=== PATIENT | female | born 1990 | race Caucasian/White ===

== ENCOUNTER 2019-03-30 22:13 | Inpatient (IN) | payer OTHER ==
[2019-03-30] MEDS ORDERED: KETOROLAC 30 MG/ML 1 ML VIAL IVP STA (22:59)
[2019-03-30] MEDS ORDERED: ONDANSETRON 4 MG/2 ML VIAL IVP STA (22:59)
--- NOTE | 2019-03-30 23:09 | ED ---
Abdominal Pain HPI - General Chief Complaint: Abdominal Pain Stated Complaint: abd pain Time Seen by Provider: 03/30/19 22:28 Source: patient Mode of arrival: ambulatory Limitations: no limitations - History of Present Illness Initial Comments: Patient is 29-year-old woman who had been having some intermittent upper abdominal pains over the course of a number days, presents to be evaluated for right upper quadrant pain that became severe and constant since 2 PM. 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 The pain has continued and then she also developed nausea as well. MD Complaint: abdominal pain Onset/Timin -: hour(s) Location: epigastric Radiation: back Migration to: RUQ Severity: severe Quality: sharp Consistency: constant Improves With: nothing Worsens With: movement Associated Symptoms: nausea, vomiting - Related Data LMP (females 10-50): 3 weeks Patient : No Allergies Allergy/AdvReac Type Severity Reaction Status Date / Time No Known Allergies Allergy Verified 03/30/19 22:24 Review of Systems ROS Statement: Those systems with pertinent positive or pertinent negative responses have been documented in the HPI. ROS Other: All systems not noted in ROS Statement are negative. Constitutional: Denies: fever, chills Respiratory: Denies: cough, dyspnea Cardiovascular: Denies: chest pain, palpitations, edema Gastrointestinal: Reports: abdominal pain, nausea, vomiting. Denies: diarrhea, constipation, hematemesis, melena, hematochezia Genitourinary: Denies: dysuria, hematuria Musculoskeletal: Denies: back pain Skin: Denies: rash Neurological: Denies: headache, weakness, numbness Past Medical History Past Medical History: No Reported History History of Any Multi-Drug Resistant Organisms: None Reported Past Surgical History: Section Past Psychological History: No Psychological Hx Reported Smoking Status: Never smoker Past Alcohol Use History: Occasional Past Drug Use History: None Reported General Exam Limitations: no limitations General appearance: alert, in distress Head exam: Present: atraumatic, normocephalic Eye exam: Present: normal appearance. Absent: scleral icterus, conjunctival injection ENT exam: Present: normal oropharynx Neck exam: Present: normal inspection, full ROM Respiratory exam: Present: normal lung sounds bilaterally. Absent: respiratory distress, wheezes, rales, rhonchi, stridor Cardiovascular Exam: Present: regular rate, normal rhythm, normal heart sounds. Absent: systolic murmur, diastolic murmur, rubs, gallop GI/Abdominal exam: Present: soft, tenderness. Absent: distended, guarding, rebound, rigid, mass, pulsatile mass, hernia Back exam: Present: normal inspection. Absent: CVA tenderness (R), CVA tenderness (L) Neurological exam: Present: alert Skin exam: Present: warm, dry, intact, normal color. Absent: rash Course Vital Signs 03/30/19 22:21 Temperature 98.0 F Pulse Rate 102 H Respiratory 20 Rate Blood Pressure 135/88 O2 Sat by Pulse 99 Oximetry Medical Decision Making - Lab Data Result diagrams: 03/31/19 00:39 03/31/19 00:39 Lab Results 03/31/19 03/31/19 03/31/19 Range/Units 00:39 00:39 01:24 WBC 14.0 H (3.8-10.6) k/uL RBC 4.78 (3.80-5.40) m/uL Hgb 13.6 (11.4-16.0) gm/dL Hct 41.3 (34.0-46.0) % MCV 86.5 (80.0-100.0) fL MCH 28.4 (25.0-35.0) pg MCHC 32.8 (31.0-37.0) g/dL RDW 13.4 (11.5-15.5) % Plt Count 298 (150-450) k/uL Neutrophils % 83 % Lymphocytes % 12 % Monocytes % 3 % Eosinophils % 0 % Basophils % 0 % Neutrophils # 11.7 H (1.3-7.7) k/uL Lymphocytes # 1.7 (1.0-4.8) k/uL Monocytes # 0.5 (0-1.0) k/uL Eosinophils # 0.1 (0-0.7) k/uL Basophils # 0.1 (0-0.2) k/uL Sodium 138 (137-145) mmol/L Potassium 4.3 (3.5-5.1) mmol/L Chloride 106 (98-107) mmol/L Carbon Dioxide 23 (22-30) mmol/L Anion Gap 9 mmol/L BUN 12 (7-17) mg/dL Creatinine 0.65 (0.52-1.04) mg/dL Est GFR (CKD-EPI)AfAm >90 (>60 ml/min/1.73 sqM) Est GFR (CKD-EPI)NonAf >90 (>60 ml/min/1.73 sqM) Glucose 109 H (74-99) mg/dL Calcium 9.9 (8.4-10.2) mg/dL Total Bilirubin 2.1 H (0.2-1.3) mg/dL AST 561 H (14-36) U/L ALT 356 H (4-34) U/L Alkaline Phosphatase 168 H (38-126) U/L Total Protein 7.8 (6.3-8.2) g/dL Albumin 4.5 (3.5-5.0) g/dL Amylase 53 (30-110) U/L Lipase 87 (23-300) U/L Urine Color Yellow Urine Appearance Clear (Clear) Urine pH 7.0 (5.0-8.0) Ur Specific [place] 1.013 (1.001-1.035) Urine Protein Negative (Negative) Urine Glucose (UA) Negative (Negative) Urine Ketones Negative (Negative) Urine Blood Negative (Negative) Urine Nitrite Negative (Negative) Urine Bilirubin Negative (Negative) Urine Urobilinogen 2.0 (<2.0) mg/dL Ur Leukocyte Esterase Negative (Negative) Urine HCG, Qual (Not Detectd) 03/31/19 Range/Units 01:25 WBC (3.8-10.6) k/uL RBC (3.80-5.40) m/uL Hgb (11.4-16.0) gm/dL Hct (34.0-46.0) % MCV (80.0-100.0) fL MCH (25.0-35.0) pg MCHC (31.0-37.0) g/dL RDW (11.5-15.5) % Plt Count (150-450) k/uL Neutrophils % % Lymphocytes % % Monocytes % % Eosinophils % % Basophils % % Neutrophils # (1.3-7.7) k/uL Lymphocytes # (1.0-4.8) k/uL Monocytes # (0-1.0) k/uL Eosinophils # (0-0.7) k/uL Basophils # (0-0.2) k/uL Sodium (137-145) mmol/L Potassium (3.5-5.1) mmol/L Chloride (98-107) mmol/L Carbon Dioxide (22-30) mmol/L Anion Gap mmol/L BUN (7-17) mg/dL Creatinine (0.52-1.04) mg/dL Est GFR (CKD-EPI)AfAm (>60 ml/min/1.73 sqM) Est GFR (CKD-EPI)NonAf (>60 ml/min/1.73 sqM) Glucose (74-99) mg/dL Calcium (8.4-10.2) mg/dL Total Bilirubin (0.2-1.3) mg/dL AST (14-36) U/L ALT (4-34) U/L Alkaline Phosphatase (38-126) U/L Total Protein (6.3-8.2) g/dL Albumin (3.5-5.0) g/dL Amylase (30-110) U/L Lipase (23-300) U/L Urine Color Urine Appearance (Clear) Urine pH (5.0-8.0) Ur Specific [place] (1.001-1.035) Urine Protein (Negative) Urine Glucose (UA) (Negative) Urine Ketones (Negative) Urine Blood (Negative) Urine Nitrite (Negative) Urine Bilirubin (Negative) Urine Urobilinogen (<2.0) mg/dL Ur Leukocyte Esterase (Negative) Urine HCG, Qual Not Detected (Not Detectd) Disposition Clinical Impression: Abdominal pain Disposition: ADMITTED IP TO THIS [facility] Condition: Fair
[2019-03-31 01:00] LABS: Basophils # (A) 0.1 k/uL (0-0.2); Basophils % (A) 0 %; Eosinophils # (A) 0.1 k/uL (0-0.7); Eosinophils % (A) 0 %; HCT 41.3 % (34.0-46.0); HGB 13.6 gm/dL (11.4-16.0); Lymphocytes # (A) 1.7 k/uL (1.0-4.8); Lymphocytes % (A) 12 %; MCH 28.4 pg (25.0-35.0); MCHC 32.8 g/dL (31.0-37.0); MCV 86.5 fL (80.0-100.0); Mean Platelet Volume 7.3; Monocytes # (A) 0.5 k/uL (0-1.0); Monocytes % (A) 3 %; Neutrophils # (A) 11.7 k/uL (1.3-7.7); Neutrophils % (A) 83 %; Platelet Count 298 k/uL (150-450); RBC 4.78 m/uL (3.80-5.40); RDW 13.4 % (11.5-15.5)
[2019-03-31] MEDS: SODIUM CHLORIDE 0.9% 500 ML 500 ML IV STA ×2 (01:00→07:58)
[2019-03-31 01:09] LABS: ALT 356 U/L (4-34); AST 561 U/L (14-36); African American GFR (CKD) >90 (>60 ml/min/1.73 sqM); Albumin 4.5 g/dL (3.5-5.0); Alkaline Phosphatase 168 U/L (38-126); Amylase 53 U/L (30-110); Anion Gap 9 mmol/L; Blood Urea Nitrogen 12 mg/dL (7-17); Calcium 9.9 mg/dL (8.4-10.2); Carbon Dioxide 23 mmol/L (22-30); Chloride 106 mmol/L (98-107); Glucose 109 mg/dL (74-99); Non-African American GFR(CKD) >90 (>60 ml/min/1.73 sqM); Potassium 4.3 mmol/L (3.5-5.1); Sodium 138 mmol/L (137-145); Total Bilirubin 2.1 mg/dL (0.2-1.3); Total Protein 7.8 g/dL (6.3-8.2)
--- NOTE | 2019-03-31 01:10 | US ---
EXAMINATION TYPE: US abdomen limited DATE OF EXAM: 03/31/2019 COMPARISON: NONE CLINICAL HISTORY: Acute abdominal pain, attention RUQ. Acute abdominal pain x 1 week. ATTN RUQ. EXAM MEASUREMENTS: Liver Length: 16.7 cm Gallbladder Wall: 0.23 cm CBD: 0.69 cm Right Kidney: 11.4 x 5.6 x 3.9 cm Limited due to body habitus and overlying bowel gas. Pancreas: Limited. No abnormalities seen at this time. Liver: No abnormalities seen at this time. Gallbladder: There appears to be multiple hyperechoic foci with posterior shadowing within the gallb ladder. Gallbladder measures distended at 12.2 cm. Evidence for sonographic Ch's sign: Yes CBD: Appears to measure slightly dilated 0.7 cm. Right Kidney: No hydronephrosis or masses seen IMPRESSION: Numerous gallstones. Large gallbladder. No dilated ducts. Large common bile duct could relate to some degree of gallbladder dysfunction.
[2019-03-31 02:11] LABS: Appearance,Urine Clear (Clear); Bilirubin,Urine Negative (Negative); Blood,Urine Negative (Negative); Color,Urine Yellow; Glucose,Urine (UA) Negative (Negative); Ketones,Urine Negative (Negative); Leukocyte Esterase,Urine Negative (Negative); Nitrite,Urine Negative (Negative); Protein,Urine Negative (Negative); Specific Gravity,Urine 1.013 (1.001-1.035)
[2019-03-31] MEDS ORDERED: ONDANSETRON 4 MG/2 ML VIAL IVP PRN (03:46)
[2019-03-31] MEDS ORDERED: NALOXONE 0.4 MG/ML 1 ML VIAL IV PRN (03:46)
[2019-03-31] MEDS ORDERED: HYDROmorphone 1 MG/ML 1 ML SYRINGE IVP PRN (03:46)
[2019-03-31] MEDS ORDERED: KETOROLAC 30 MG/ML 1 ML VIAL IVP PRN (03:46)
[2019-03-31] MEDS: SODIUM CHLORIDE 0.9% 1,000 ML IV SCH ×3 (06:53→20:23)
[2019-03-31] MEDS: FAMOTIDINE 20 MG/2 ML VIAL IV SCH ×2 (08:22→20:23)
--- NOTE | 2019-03-31 18:42 | P.GSHP ---
History of Present Illness H&P Date: 03/31/19 Chief Complaint: Right quadrant pain Is a 29-year-old female who was admitted through the emergency room last night. Patient with right quadrant pain. Her son shows evidence of cholelithiasis. Past Medical History Past Medical History: No Reported History History of Any Multi-Drug Resistant Organisms: None Reported Past Surgical History: Section Past Anesthesia/Blood Transfusion Reactions: Postoperative Nausea & Vomiting (PONV) Past Psychological History: No Psychological Hx Reported Smoking Status: Never smoker Past Alcohol Use History: Occasional Past Drug Use History: None Reported - Past Family History Mother Family Medical History: No Reported History Father Family Medical History: No Reported History Medications and Allergies Home Medications Medication Instructions Recorded Confirmed Type No Known Home Medications 03/31/19 03/31/19 History Allergies Allergy/AdvReac Type Severity Reaction Status Date / Time No Known Allergies Allergy Verified 03/31/19 07:57 Surgical - Exam Vital Signs Temp Pulse Resp BP Pulse Ox 98.0 F 102 H 20 135/88 99 03/30/19 22:21 03/30/19 22:21 03/30/19 22:21 03/30/19 22:21 03/30/19 22:21 - General well developed, well nourished, no distress - Eyes PERRL - ENT normal pinna - Neck no masses - Respiratory normal expansion - Cardiovascular Rhythm: regular - Abdomen Mild right quadrant pain Abdomen: soft Results - Labs 03/31/19 00:39 03/31/19 00:39 Abnormal Lab Results - Last 24 Hours (Table) 03/31/19 03/31/19 Range/Units 00:39 00:39 WBC 14.0 H (3.8-10.6) k/uL Neutrophils # 11.7 H (1.3-7.7) k/uL Glucose 109 H (74-99) mg/dL Total Bilirubin 2.1 H (0.2-1.3) mg/dL AST 561 H (14-36) U/L ALT 356 H (4-34) U/L Alkaline Phosphatase 168 H (38-126) U/L Diabetes panel 03/31/19 Range/Units 00:39 Sodium 138 (137-145) mmol/L Potassium 4.3 (3.5-5.1) mmol/L Chloride 106 (98-107) mmol/L Carbon Dioxide 23 (22-30) mmol/L BUN 12 (7-17) mg/dL Creatinine 0.65 (0.52-1.04) mg/dL Glucose 109 H (74-99) mg/dL Calcium 9.9 (8.4-10.2) mg/dL AST 561 H (14-36) U/L ALT 356 H (4-34) U/L Alkaline Phosphatase 168 H (38-126) U/L Total Protein 7.8 (6.3-8.2) g/dL Albumin 4.5 (3.5-5.0) g/dL Calcium panel 03/31/19 Range/Units 00:39 Calcium 9.9 (8.4-10.2) mg/dL Albumin 4.5 (3.5-5.0) g/dL Pituitary panel 03/31/19 Range/Units 00:39 Sodium 138 (137-145) mmol/L Potassium 4.3 (3.5-5.1) mmol/L Chloride 106 (98-107) mmol/L Carbon Dioxide 23 (22-30) mmol/L BUN 12 (7-17) mg/dL Creatinine 0.65 (0.52-1.04) mg/dL Glucose 109 H (74-99) mg/dL Calcium 9.9 (8.4-10.2) mg/dL Adrenal panel 03/31/19 Range/Units 00:39 Sodium 138 (137-145) mmol/L Potassium 4.3 (3.5-5.1) mmol/L Chloride 106 (98-107) mmol/L Carbon Dioxide 23 (22-30) mmol/L BUN 12 (7-17) mg/dL Creatinine 0.65 (0.52-1.04) mg/dL Glucose 109 H (74-99) mg/dL Calcium 9.9 (8.4-10.2) mg/dL Total Bilirubin 2.1 H (0.2-1.3) mg/dL AST 561 H (14-36) U/L ALT 356 H (4-34) U/L Alkaline Phosphatase 168 H (38-126) U/L Total Protein 7.8 (6.3-8.2) g/dL Albumin 4.5 (3.5-5.0) g/dL Assessment and Plan Assessment: Symptomatically size. Patient will undergo laparoscopic cholecystectomy
[2019-04-01] MEDS: SODIUM CHLORIDE 0.9% 1,000 ML IV SCH ×3 (08:18→12:52)
[2019-04-01] MEDS ORDERED: IV FLUID CONTINUATION 1,000 ML IV ONE (08:23)
[2019-04-01] MEDS ORDERED: DEXAMETHASONE SOD PHOSPHATE 10 MG/ML 1 ML VIAL IV ONE (08:28)
[2019-04-01] MEDS ORDERED: SCOPOLAMINE 1.5MG/72HR PATCH TRANSDERM ONE (08:29)
[2019-04-01] MEDS ORDERED: BUPIVACAINE (PF) 0.25% 30 ML VIAL SQ ONE (09:39)
[2019-04-01] MEDS ORDERED: SUCCINYLCHOLINE CHLORIDE 100 MG/5 ML SYR IV ONE (09:41)
[2019-04-01] MEDS ORDERED: PROPOFOL 10 MG/ML 20 ML VIAL IV ONE (09:41)
[2019-04-01] MEDS ORDERED: KETOROLAC 30 MG/ML 1 ML VIAL ONE (09:41)
[2019-04-01] MEDS ORDERED: DILTIAZEM 100 MG VIAL.PORT IV ONE (09:41)
[2019-04-01] MEDS ORDERED: MIDAZOLAM 2 MG/2 ML VIAL ONE (09:41)
[2019-04-01] MEDS ORDERED: ROCURONIUM BROMIDE 10 MG/ML 5 ML VIAL IV ONE (09:41)
[2019-04-01] MEDS ORDERED: ceFAZolin 1,000 MG VIAL IVPB ONE (10:00)
[2019-04-01] MEDS ORDERED: LACTATED RINGERS 1,000 ML IV ONE (10:24)
--- NOTE | 2019-04-01 10:33 | P.OP ---
Date of Procedure: 04/01/19 Preoperative Diagnosis: Cholecystitis Postoperative Diagnosis: Cholecystitis Procedure(s) Performed: Laparoscopic cholecystectomy Anesthesia: YONI Surgeon: Richardson Lange Estimated Blood Loss (ml): 5 Pathology: other (Gallbladder) Condition: stable Disposition: PACU Description of Procedure: The patient was placed on the operating table. The patient received a general endotracheal tube anesthesia. The patients abdomen was prepped and draped in the usual sterile fashion. Through an infraumbilical stab incision, the fascia of the anterior abdominal wall was grasped with a pair of Kochers and then the Veress needle was placed in the peritoneal cavity. Position of the Veress needle was confirmed with positive drop test. The abdomen was then insufflated. After adequate insufflation, the 10 mm trocar was placed in the peritoneal cavity. Following this the laparoscope was placed in the peritoneal cavity. The patient was placed in the head-up, right side up position and then a 5 mm trocar was placed in the right lateral and right subcostal position under direct visualization. A 8 mm trocar was placed in the epigastric position. The gallbladder was grasped in the fundus and infundibulum. Traction on the gallbladder was placed in the lateral and the cephalad positions. The triangle of Calot was visualized.. The cystic duct was bluntly dissected until the union of the cystic duct and common bile duct was seen. A critical view of safety was achieved. The cystic duct was then divided and sealed with the Harmonic scissors. A PDS Endoloop was then placed throughout the cystic duct stump. The cystic artery divided and sealed with the Harmonic scissors. The gallbladder was then removed from the liver bed using Harmonic scissors. The gallbladder was then extracted through the epigastric port site. Operative field was checked for any bleeding spots and Harmonic scissors was used to coagulate the liver bed. The abdomen was irrigated. The trocars were removed. The skin was closed using interrupted 3-0 Vicryl suture. Dermabond dressing were applied. The patient tolerated the procedure well.
[2019-04-01] MEDS ORDERED: ONDANSETRON 4 MG/2 ML VIAL IVP ONE (10:45)
[2019-04-01] MEDS: MORPHINE SULFATE 4 MG/ML SYRINGE IVP ONE ×2 (10:56→11:04)
[2019-04-01] MEDS ORDERED: HYDROcodone/APAP 5-325MG 1 EACH TAB PO PRN (11:37)
[2019-04-01 12:48] VITALS: TEMP 96.8
[2019-04-01] MEDS: FAMOTIDINE 20 MG/2 ML VIAL IV SCH (12:50)
--- NOTE | 2019-04-01 13:06 | P.DS ---
Providers Date of admission: 04/01/19 10:12 Expected date of discharge: 04/01/19 Attending physician: Richardson Lange Primary care physician: Stated None Hospital Course: 29-year-old female who presented to emergency room with a chief complaint of abdominal pain. Patient was found to have cholecystitis. She underwent laparoscopic cholecystectomy with Dr. Lange on 04/01/2019. Patient is doing well postoperatively without any immediate complications. She is stable for discharge home today per Dr. Lange. Please see EMR for further hospital course details. Discharge Diagnosis: 1. Cholecystitis, status post laparoscopic cholecystectomy Nurse practitioner note has been reviewed by physician. Signing provider agrees with the documented findings, assessment, and plan of care. Patient Condition at Discharge: Stable Plan - Discharge Summary Discharge Rx Participant: Yes New Discharge Prescriptions: New Hydrocodone/Acetaminophen [[place] 5-325] 1 tab PO Q6HR PRN #10 tab PRN Reason: Pain Discharge Medication List Hydrocodone/Acetaminophen [[place] 5-325] 1 tab PO Q6HR PRN #10 tab 04/01/19 [Rx] Follow up Appointment(s)/Referral(s): None,Stated [Primary Care Provider] - 1-2 days Richardson Lange MD [STAFF PHYSICIAN] - 1 Week Activity/Diet/Wound Care/Special Instructions: No driving while taking [place] No lifting over 10 pounds You may shower. No soaking or tub baths Very light activity until you are reevaluated at your follow up appointment with your surgeon
[2019-04-01 13:15] VITALS: RESP 16
[2019-04-01 15:40] VITALS: BP 150/97; PULSE 71
--- NOTE | 2019-04-05 04:12 | CDI ---
Documentation Clarification Form Date: 04/05/2019 From: Jorge Stewart Phone: If you have a question about this query, please contact Alejandra Hadley, Medical Billing Representative at [phone] between 8am and 5pm. Admit Date: 04/01/2019 Discharge Date: 04/01/2019 Patient Name: Katie Reyes Visit Number: [id number] ATTENTION: The Clinical Documentation Specialists (CDI) and [facility] Coding Staff appreciate your assistance in clarifying documentation. Please respond to the clarification below the line at the bottom and electronically sign. The CDI & [facility] Coding staff will review the response and follow-up if needed. Please note: Queries are made part of the Legal Health Record. If you have any questions, please contact the author of this message via ITS. Dear Richardson Rincon., Patient admitted with Cholecystitis and underwent cholecystectomy. Patient has BMI of 47.0 History/Risk Factors: Cholecystitis Clinical Indicators: Patients weight is 120.383kg Patients height is: 5ft 3 inch Calculated BMI is 47.0 In order to capture the severity of condition associated with patient BMI of 47.0 a clinical diagnosis needs to be documented by the physician. Please clarify: Overweight Obesity, Class 1 Obesity, Class 2 Extreme (Morbid) (severe) obesity Other, please specify ____ Unable to determine MTDD
== END 2019-04-01 18:43 | disposition home or self-care (01) | DRG 418 ==
LOC: EC 22:13 → 6PED 03-31 03:46 → OBSVTOIN 04-01 10:12
PROVIDERS: ADMIT Surgery; ATTEND Surgery
PROC: 0FT44ZZ Resection of Gallbladder, Percutaneous Endoscopic Approach (ICD-10-PCS; principal; 2019-04-01 09:15)
DX: K81.9 Cholecystitis, unspecified (principal); Z68.42 Body mass index [BMI] 45.0-49.9, adult; Z98.891 History of uterine scar from previous surgery; E66.01 Morbid (severe) obesity due to excess calories
CPT/HCPCS: 36415; 76705; 80053; 81003; 81025; 82150; 83690; 85025; 88304; 96361; 96374; 96375; 99285

== ENCOUNTER → 2023-03-01 | Outpatient (CLI) | payer MEDICAID, OTHER ==
[2023-03-01 23:03] LABS: Basophils # (A) 0.05 X 10*3/uL (0.00-0.10); Basophils % (A) 0.5 %; Eosinophils # (A) 0.08 X 10*3/uL (0.04-0.35); Eosinophils % (A) 0.8 %; HCT 42.3 % (37.2-46.3); HGB 13.4 g/dL (12.0-15.0); Lymphocytes % (A) 29.7 %; MCH 29.3 pg (27.0-32.0); MCHC 31.7 g/dL (32.0-37.0); MCV 92.4 FL (80.0-97.0); Monocytes # (A) 0.52 X 10*3/uL (0.20-1.00); Monocytes % (A) 5.1 %; NRBC Per 100 WBC 0 X 10*3/uL (0.00-0.01); Neutrophils # (A) 6.43 X 10*3/uL (1.80-7.70); Neutrophils % (A) 63.6 %; Platelet Count 277 X 10*3/uL (140-440); RBC 4.58 X 10*6/uL (4.10-5.20); RDW 12.9 % (11.5-14.5); WBC 10.11 X 10*3/uL (4.50-10.00)
== END | disposition home or self-care (01) ==
LOC: LABWHC1 12:01
PROVIDERS: ATTEND Internal Medicine
DX: O20.0 Threatened abortion (principal); Z3A.00 Weeks of gestation of pregnancy not specified
CPT/HCPCS: 36415; 84702; 85025

== ENCOUNTER → 2023-03-03 | Outpatient (CLI) | payer MEDICAID, OTHER | END | disposition home or self-care (01) | LOC: LABWHC1 09:55 | PROVIDERS: ATTEND Obstetrics & Gynecology | DX: Z32.00 Encounter for pregnancy test, result unknown (principal) | CPT/HCPCS: 36415; 84702 ==

== ENCOUNTER → 2023-06-10 | Outpatient (CLI) | payer MEDICAID, OTHER ==
--- NOTE | 2023-06-11 21:45 | US ---
EXAMINATION TYPE: US pelvis complete transvag DATE OF EXAM: 06/10/2023 COMPARISON: NONE CLINICAL INDICATION: Female, 33 years old with history of R10.2 PELVIC AND PERINEAL PAIN; Positive BR CA gene per patient. Left flank pain. TECHNIQUE: Transvaginal (TV) and Transabdominal (TA) . Transabdominal sonographic images of the pel vis were acquired. Transvaginal sonographic images were medically necessary to better assess the fol lowing anatomy: Ovaries Date of LMP: 04/29/2022, [id number] EXAM MEASUREMENTS: Uterus: 9.0 x 4.2 x 4.2 cm Endometrial Stripe: 0.6 cm Right Ovary: 2.8 x 1.8 x 1.3 cm Left Ovary: 3.2 x 2.1 x 1.2 cm 1. Uterus: Anteverted Heterogenous 2. Endometrium: wnl in size 3. Right Ovary: follicles, limited visualization 4. Left Ovary: follicles seen 5. Bilateral Adnexa: wnl 6. Posterior cul-de-sac: no free fluid IMPRESSION: 1. Unremarkable pelvic ultrasound.
== END | disposition home or self-care (01) ==
LOC: RADUSWWP 16:13
PROVIDERS: ATTEND Obstetrics & Gynecology
DX: R10.2 Pelvic and perineal pain (principal)
CPT/HCPCS: 76830; 76856

== ENCOUNTER 2023-06-13 14:07 | Emergency (ER) | payer MEDICAID, OTHER ==
[2023-06-13 16:00] LABS: Basophils # (A) 0.1 k/uL (0-0.2); Basophils % (A) 1 %; Eosinophils # (A) 0.1 k/uL (0-0.7); Eosinophils % (A) 1 %; HCT 39.2 % (34.0-46.0); HGB 12.8 gm/dL (11.4-16.0); Lymphocytes # (A) 2.4 k/uL (1.0-4.8); Lymphocytes % (A) 25 %; MCH 30.3 pg (25.0-35.0); MCHC 32.7 g/dL (31.0-37.0); MCV 92.5 fL (80.0-100.0); Mean Platelet Volume 7.5; Monocytes # (A) 0.4 k/uL (0-1.0); Monocytes % (A) 4 %; Neutrophils # (A) 6.5 k/uL (1.3-7.7); Neutrophils % (A) 68 %; Platelet Count 264 k/uL (150-450); RBC 4.24 m/uL (3.80-5.40); RDW 12.9 % (11.5-15.5); WBC 9.6 k/uL (3.8-10.6)
[2023-06-13 17:38] LABS: ALT 22 U/L (4-34); AST 26 U/L (14-36); African American GFR (CKD) 89 (>60 ml/min/1.73 sqM); Albumin 3.8 g/dL (3.5-5.0); Alkaline Phosphatase 74 U/L (38-126); Anion Gap 7 mmol/L; Blood Urea Nitrogen 12 mg/dL (7-17); Calcium 9.2 mg/dL (8.4-10.2); Carbon Dioxide 24 mmol/L (22-30); Chloride 105 mmol/L (98-107); Glucose 83 mg/dL (74-99); Non-African American GFR(CKD) 77 (>60 ml/min/1.73 sqM); Potassium 4.3 mmol/L (3.5-5.1); Sodium 136 mmol/L (137-145); Total Bilirubin 0.3 mg/dL (0.2-1.3); Total Protein 6.7 g/dL (6.3-8.2)
--- NOTE | 2023-06-13 17:41 | CT ---
EXAMINATION TYPE: CT abdomen pelvis wo con DATE OF EXAM: 06/13/2023 COMPARISON: None HISTORY: 33 year-old female right flank pain right flank pain CT DLP: 1460.3 mGycm. Automated exposure control for dose reduction was used. TECHNIQUE: Contiguous axial scanning of the abdomen and pelvis without IV contrast. Coronal and sagit julia reconstructions performed. FINDINGS: Heart normal size without pericardial effusion. Lungs are clear without effusion. Noncontrast appearance of the liver, adrenal glands, kidneys, spleen, pancreas show no abnormality. N o nephrolithiasis or hydronephrosis. No dilated small bowel, free fluid, or free air. No mesenteric or retroperitoneal lymphadenopathy. Appendix not clearly delineated. No secondary findings of acute appendicitis in the right lower quadr ant. No significant stool burden. Bladder urine distended. Small pelvic phleboliths. Uterus anteverted. Both ovaries are visualized. No abnormal fluid collection in the pelvis or pelvic lymphadenopathy. Bones: Mild degenerative change lower lumbar spine. No osseous destructive process. IMPRESSION: No nephrolithiasis or hydronephrosis. No acute inflammatory process identified in the abdomen or pelv is to explain the patient's symptoms.
--- NOTE | 2023-06-13 17:52 | ED ---
Abdominal Pain HPI - General Chief Complaint: Abdominal Pain Stated Complaint: Abd pain Time Seen by Provider: 06/13/23 15:39 Source: patient Mode of arrival: ambulatory Limitations: no limitations - History of Present Illness Initial Comments: This patient is a 33-year-old woman who presents with the complaint that "I think I have kidney stones." The patient states that she noted of some what she thought was vaginal bleeding on June 05. She states that this was not usual for her as her previous period Was May 30 then she is usually fairly regular. She then noted later that she was having some right flank pain that seem to progress down towards her right lower quadrant. She continues to have the spotting and then she noted episodes of what she described as Yogesh-aid colored urine. The patient did follow with her export agent. SHe subsequently had a pelvic ultrasound that was negative. Patient has not noted fever or chills. No change in bowel movements. MD Complaint: abdominal pain, flank pain -: days(s) Location: R flank Radiation: RLQ Migration to: no migration Severity: moderate Quality: aching Consistency: intermittent Improves With: nothing Worsens With: nothing Associated Symptoms: hematuria - Related Data LMP (females 10-50): last week Previous Rx's Medication Instructions Recorded Hydrocodone/Acetaminophen [[place] 1 tab PO Q6HR PRN #10 tab 04/01/19 5-325] Allergies Allergy/AdvReac Type Severity Reaction Status Date / Time No Known Allergies Allergy Verified 06/13/23 14:21 Review of Systems ROS Statement: Those systems with pertinent positive or pertinent negative responses have been documented in the HPI. ROS Other: All systems not noted in ROS Statement are negative. Constitutional: Denies: fever, chills Respiratory: Denies: cough, dyspnea Cardiovascular: Denies: chest pain, palpitations, edema Gastrointestinal: Reports: abdominal pain. Denies: nausea, vomiting, diarrhea, constipation Genitourinary: Reports: hematuria, abnormal menses. Denies: dysuria, discharge Musculoskeletal: Denies: back pain Skin: Denies: rash Neurological: Denies: headache, weakness Hematological/Lymphatic: Denies: easy bleeding Past Medical History Past Medical History: No Reported History History of Any Multi-Drug Resistant Organisms: None Reported Past Surgical History: Section Past Anesthesia/Blood Transfusion Reactions: Postoperative Nausea & Vomiting (PONV) Past Psychological History: No Psychological Hx Reported Past Alcohol Use History: Occasional Past Drug Use History: None Reported - Past Family History Mother Family Medical History: No Reported History Father Family Medical History: No Reported History General Exam Limitations: no limitations General appearance: alert, in no apparent distress Head exam: Present: atraumatic, normocephalic Eye exam: Present: normal appearance. Absent: scleral icterus, conjunctival injection ENT exam: Present: normal oropharynx Neck exam: Present: normal inspection Respiratory exam: Present: normal lung sounds bilaterally. Absent: respiratory distress, wheezes, rales, rhonchi, stridor, accessory muscle use Cardiovascular Exam: Present: regular rate, normal rhythm, normal heart sounds. Absent: systolic murmur, diastolic murmur, rubs, gallop GI/Abdominal exam: Present: soft. Absent: distended, tenderness, guarding, rebound, rigid, mass Extremities exam: Present: normal inspection, normal capillary refill. Absent: pedal edema, calf tenderness Back exam: Present: normal inspection. Absent: CVA tenderness (R), CVA tenderness (L) Neurological exam: Present: alert Skin exam: Present: warm, dry, intact, normal color. Absent: rash Course Vital Signs 06/13/23 06/13/23 06/13/23 14:16 17:59 19:02 Temperature 99.0 F 98 F 98.2 F Pulse Rate 87 69 73 Respiratory 16 18 18 Rate Blood Pressure 155/84 124/85 125/81 O2 Sat by Pulse 96 100 99 Oximetry Medical Decision Making - Medical Decision Making The patient had CT scan of the abdomen and pelvis that I interpreted as negative for kidney stone, obstruction or free air. Was pt. sent in by a medical professional or institution (, PA, WELDER BOILERMAKER, urgent care, hospital, or senior care...) When possible be specific @ -[No] Did you speak to anyone other than the patient for history (EMS, parent, family, police, friend...)? What history was obtained from this source @ -[No] Did you review nursing and triage notes (agree or disagree)? Why? @ -[I reviewed and agree with nursing and triage notes] Were old charts reviewed (outside hosp., previous admission, EMS record, old EK G, old radiological studies, urgent care reports/EKG's, senior care records)? Report findings @ -[No old charts were reviewed] Differential Diagnosis (chest pain, altered mental status, abdominal pain women, abdominal pain men, vaginal bleeding, weakness, fever, dyspnea, syncope, headache, dizziness, GI bleed, back pain, seizure, CVA, palpatations, mental health, musculoskeletal)? @ -[MDM differential abdominal pain women EKG interpreted by me (3pts min.). @ -[As above] X-rays interpreted by me (1pt min.). @ -[None done] CT interpreted by me (1pt min.). @ -[I interpreted as above U/S interpreted by me (1pt. min.). @ -[None done] What testing was considered but not performed or refused? (CT, X-rays, U/S, labs)? Why? @ -[None] What meds were considered but not given or refused? Why? @ -[None] Did you discuss the management of the patient with other professionals (professionals i.e. , PA, WELDER BOILERMAKER, lab, RT, psych nurse, social media editor, fixing machine operator, teacher, disbursing officer, correctional case manager)? Give summary @ -[No] Was smoking cessation discussed for >3mins.? @ -[No] Was critical care preformed (if so, how long)? @ -[No] Were there social determinants of health that impacted care today? How? (Homelessness, low income, unemployed, alcoholism, drug addiction, transportation, low edu. Level, literacy, decrease access to med. care, senior care, rehab)? @ -[No] Was there de-escalation of care discussed even if they declined (Discuss DNR or withdrawal of care, Hospice)? DNR status @ -[No] What co-morbidities impacted this encounter? (DM, HTN, Smoking, COPD, CAD, Cancer, CVA, ARF, Chemo, Hep., AIDS, mental health diagnosis, sleep apnea, morbid obesity)? @ -[None] Was patient admitted / discharged? Hospital course, mention meds given and route, prescriptions, significant lab abnormalities, going to OR and other pertinent info. @ -[Patient is a 33-year-old woman with abdominal pain. Her workup is unremarkable. The patient has had some relief of symptoms and like to go. We discussed appropriate further care and follow-up as well as return parameters. Undiagnosed new problem with uncertain prognosis? @ -[No] Drug Therapy requiring intensive monitoring for toxicity (Heparin, Nitro, Insulin, Cardizem)? @ -[No] Were any procedures done? @ -[No] Diagnosis/symptom? @ -Abdominal pain Dysfunctional uterine bleeding Acute, or Chronic, or Acute on Chronic? @ -[Acute Uncomplicated (without systemic symptoms) or Complicated (systemic symptoms)? @ -[Uncomplicated Side effects of treatment? @ -[No] Exacerbation, Progression, or Severe Exacerbation? @ -[No] Poses a threat to life or bodily function? How? (Chest pain, [place], [place], pneumonia, PE, COPD, DKA, ARF, appy, cholecystitis, CVA, Diverticulitis, Homicidal, Suicidal, threat to staff... and all critical care pts) @ -[No] - Lab Data Result diagrams: 06/13/23 15:40 06/13/23 17:20 Lab Results 06/13/23 06/13/23 06/13/23 Range/Units 15:40 16:26 16:26 WBC 9.6 (3.8-10.6) k/uL RBC 4.24 (3.80-5.40) m/uL Hgb 12.8 (11.4-16.0) gm/dL Hct 39.2 (34.0-46.0) % MCV 92.5 (80.0-100.0) fL MCH 30.3 (25.0-35.0) pg MCHC 32.7 (31.0-37.0) g/dL RDW 12.9 (11.5-15.5) % Plt Count 264 (150-450) k/uL MPV 7.5 Neutrophils % 68 % Lymphocytes % 25 % Monocytes % 4 % Eosinophils % 1 % Basophils % 1 % Neutrophils # 6.5 (1.3-7.7) k/uL Lymphocytes # 2.4 (1.0-4.8) k/uL Monocytes # 0.4 (0-1.0) k/uL Eosinophils # 0.1 (0-0.7) k/uL Basophils # 0.1 (0-0.2) k/uL Sodium (137-145) mmol/L Potassium (3.5-5.1) mmol/L Chloride (98-107) mmol/L Carbon Dioxide (22-30) mmol/L Anion Gap mmol/L BUN (7-17) mg/dL Creatinine (0.52-1.04) mg/dL Est GFR (CKD-EPI)AfAm (>60 ml/min/1.73 sqM) Est GFR (CKD-EPI)NonAf (>60 ml/min/1.73 sqM) Glucose (74-99) mg/dL Calcium (8.4-10.2) mg/dL Total Bilirubin (0.2-1.3) mg/dL AST (14-36) U/L ALT (4-34) U/L Alkaline Phosphatase (38-126) U/L Total Protein (6.3-8.2) g/dL Albumin (3.5-5.0) g/dL Urine Color Colorless Urine Appearance Clear (Clear) Urine pH 7.5 (5.0-8.0) Ur Specific [place] 1.003 (1.001-1.035) Urine Protein Negative (Negative) Urine Glucose (UA) Negative (Negative) Urine Ketones Negative (Negative) Urine Blood Large H (Negative) Urine Nitrite Negative (Negative) Urine Bilirubin Negative (Negative) Urine Urobilinogen <2.0 (<2.0) mg/dL Ur Leukocyte Esterase Negative (Negative) Urine RBC 19 H (0-5) /hpf Urine WBC 1 (0-5) /hpf Ur Squamous Epith Cells 1 (0-4) /hpf Urine Bacteria Rare H (None) /hpf Urine HCG, Qual Detected (Not Detectd) 06/13/23 Range/Units 17:20 WBC (3.8-10.6) k/uL RBC (3.80-5.40) m/uL Hgb (11.4-16.0) gm/dL Hct (34.0-46.0) % MCV (80.0-100.0) fL MCH (25.0-35.0) pg MCHC (31.0-37.0) g/dL RDW (11.5-15.5) % Plt Count (150-450) k/uL MPV Neutrophils % % Lymphocytes % % Monocytes % % Eosinophils % % Basophils % % Neutrophils # (1.3-7.7) k/uL Lymphocytes # (1.0-4.8) k/uL Monocytes # (0-1.0) k/uL Eosinophils # (0-0.7) k/uL Basophils # (0-0.2) k/uL Sodium 136 L (137-145) mmol/L Potassium 4.3 (3.5-5.1) mmol/L Chloride 105 (98-107) mmol/L Carbon Dioxide 24 (22-30) mmol/L Anion Gap 7 mmol/L BUN 12 (7-17) mg/dL Creatinine 0.98 (0.52-1.04) mg/dL Est GFR (CKD-EPI)AfAm 89 (>60 ml/min/1.73 sqM) Est GFR (CKD-EPI)NonAf 77 (>60 ml/min/1.73 sqM) Glucose 83 (74-99) mg/dL Calcium 9.2 (8.4-10.2) mg/dL Total Bilirubin 0.3 (0.2-1.3) mg/dL AST 26 (14-36) U/L ALT 22 (4-34) U/L Alkaline Phosphatase 74 (38-126) U/L Total Protein 6.7 (6.3-8.2) g/dL Albumin 3.8 (3.5-5.0) g/dL Urine Color Urine Appearance (Clear) Urine pH (5.0-8.0) Ur Specific [place] (1.001-1.035) Urine Protein (Negative) Urine Glucose (UA) (Negative) Urine Ketones (Negative) Urine Blood (Negative) Urine Nitrite (Negative) Urine Bilirubin (Negative) Urine Urobilinogen (<2.0) mg/dL Ur Leukocyte Esterase (Negative) Urine RBC (0-5) /hpf Urine WBC (0-5) /hpf Ur Squamous Epith Cells (0-4) /hpf Urine Bacteria (None) /hpf Urine HCG, Qual (Not Detectd) Disposition Clinical Impression: Dysfunctional uterine bleeding, Abdominal pain Disposition: HOME SELF-CARE Condition: Good Instructions (If sedation given, give patient instructions): Abdominal Pain (ED) Is patient prescribed a controlled substance at d/c from ED?: No Referrals: Riley Portillo MD [Primary Care Provider] - 1-2 days
[2023-06-13 17:59] LABS: Appearance,Urine Clear (Clear); Bacteria,Urine Rare /hpf; Bilirubin,Urine Negative (Negative); Blood,Urine Large (Negative); Color,Urine Colorless; Glucose,Urine (UA) Negative (Negative); Ketones,Urine Negative (Negative); Leukocyte Esterase,Urine Negative (Negative); Nitrite,Urine Negative (Negative); PH, Urine 7.5 (5.0-8.0); Protein,Urine Negative (Negative); RBC,Urine 19 /hpf (0-5); Specific Gravity,Urine 1.003 (1.001-1.035); Squamous Epithelial Cell,Urine 1 /hpf (0-4); Urobilinogen,Urine <2.0 mg/dL (<2.0); WBC,Urine 1 /hpf (0-5)
[2023-06-13 18:21] VITALS: RESP 18
[2023-06-13 19:36] VITALS: BP 125/81; PULSE 73; TEMP 98.2
== END 2023-06-13 19:02 | disposition home or self-care (01) ==
LOC: EC 14:07
DX: N93.8 Other specified abnormal uterine and vaginal bleeding (principal)
CPT/HCPCS: 36415; 74176; 80053; 81001; 81025; 85025; 99284

== ENCOUNTER → 2023-06-16 | Outpatient (CLI) | payer MEDICAID | END | disposition home or self-care (01) | LOC: LABWHC1 12:46 | PROVIDERS: ATTEND Obstetrics & Gynecology | DX: Z34.90 Encounter for supervision of normal pregnancy, unspecified, unspecified trimester (principal) | CPT/HCPCS: 36415; 84702 ==

== ENCOUNTER → 2023-06-18 | Outpatient (CLI) | payer MEDICAID | END | disposition home or self-care (01) | LOC: LABWHC1 16:12 | PROVIDERS: ATTEND Obstetrics & Gynecology | DX: Z34.90 Encounter for supervision of normal pregnancy, unspecified, unspecified trimester (principal) ==

== ENCOUNTER → 2023-06-19 | Outpatient (CLI) | payer MEDICAID, OTHER ==
--- NOTE | 2023-06-19 09:51 | US ---
EXAMINATION TYPE: Transabdominal DATE OF EXAM: 06/19/2023 9:39 AM COMPARISON: CT, [place] 2023 CLINICAL INDICATION: Female, 33 years old with history of R10.2 PELVIC AND PERINEAL PAIN; Pelvic pain . Bleeding x 7 days. Patient states she had a positive test. Normal period 05/31/2023. A1. Hx 1 miscarriage. EXAM PERFORMED: Transvaginal (TV) and Transabdominal (TA) EXAM MEASUREMENTS: GESTATIONAL AGE / DATING Physician Established: Not yet established Dates by LMP: (2 weeks/5 days) EDC: 05/31/2023 Dates by First Scan: This is first scan Dates by Current Scan for: No IUP seen at this time. MATERNAL ANATOMY Uterus: 10.6 x 5.0 x 4.1 cm. Slightly enlarged. Appears heterogeneous. Endometrium measures 0.44 cm Right Ovary: Not seen Anechoic, fluid appearing area seen in cervix: 0.8 x 0.3 x 0.3 cm. Left Ovary: 3.8 x 2.0 x 1.8 cm. *Anechoic area seen within: 1.7 x 1.5 x 1.3 cm. Post CDS / Adnexa: Fluid seen in CDS. Presence of free fluid: Yes in CDS Presence of corpus luteal cyst: Possible within left ovary, anechoic area seen: 1.7 x 1.5 x 1.3 cm. Presence of subchorionic bleed: N/A GESTATION / SURVEY MSD: Not seen at this time IUP: No IUP seen at this time Date of LMP: 05/31/2023 Beta HcG (if available): Not available IMPRESSION: 1. No intrauterine identified. The findings may reflect the normal early IUP, missed sponta neous or ectopic . Correlate with serial beta hCG and ultrasound.
== END | disposition home or self-care (01) ==
LOC: RADUSWWP 08:33
PROVIDERS: ATTEND Obstetrics & Gynecology
DX: R10.2 Pelvic and perineal pain (principal); O20.0 Threatened abortion; O36.80X0 Pregnancy with inconclusive fetal viability, not applicable or unspecified; N93.9 Abnormal uterine and vaginal bleeding, unspecified
CPT/HCPCS: 36415; 76801; 76817; 84702

== ENCOUNTER → 2023-06-27 | Outpatient (CLI) | payer MEDICAID | END | disposition home or self-care (01) | LOC: LABWHC1 10:41 | PROVIDERS: ATTEND Obstetrics & Gynecology | DX: Z34.90 Encounter for supervision of normal pregnancy, unspecified, unspecified trimester (principal) | CPT/HCPCS: 36415; 84702 ==

== ENCOUNTER 2024-05-26 13:17 | Emergency (ER) | payer MEDICAID ==
[2024-05-26] MEDS: SODIUM CHLORIDE 0.9% 1,000 ML IV ONE (13:42)
--- NOTE | 2024-05-26 13:55 | ED ---
Abdominal Pain HPI - General Chief Complaint: Abdominal Pain Stated Complaint: abd pain, 1st tri Time Seen by Provider: 05/26/24 13:25 Source: patient, RN notes reviewed Mode of arrival: ambulatory Limitations: no limitations - History of Present Illness Initial Comments: This is a 34-year-old female who presents to the emergency department for abdominal pain. States that it started 2 days ago. Pain is described as diffuse, but worse in the LLQ, with radiation into the back. She has also started to notice a small amount of spotting. She has minor associated nausea. She just found out she was a couple of days ago. She received a call from her PCP that her hCG was about 12,000. She has had one successful , as well as both miscarriages and chemical pregnancies, but states that it does not feel like either a miscarriage or chemical . She will plan on following up with Dr. Alyson Mckinney, GEOTECHNICIAL PROPERTIES TECHNICIAN in [place]. However, she has not seen her yet in this . MD Complaint: abdominal pain - Related Data Previous Rx's Medication Instructions Recorded Hydrocodone/Acetaminophen [[place] 1 tab PO Q6HR PRN #10 tab 04/01/19 5-325] Allergies Allergy/AdvReac Type Severity Reaction Status Date / Time nickel Allergy Rash/Hives Verified 05/26/24 13:23 Review of Systems ROS Statement: Those systems with pertinent positive or pertinent negative responses have been documented in the HPI. ROS Other: All systems not noted in ROS Statement are negative. Past Medical History Past Medical History: No Reported History History of Any Multi-Drug Resistant Organisms: None Reported Past Surgical History: Section Past Anesthesia/Blood Transfusion Reactions: Postoperative Nausea & Vomiting (PONV) Past Psychological History: No Psychological Hx Reported Smoking Status: Never smoker Past Alcohol Use History: Occasional Past Drug Use History: None Reported - Past Family History Mother Family Medical History: No Reported History Father Family Medical History: No Reported History General Exam Limitations: no limitations General appearance: alert, in no apparent distress Head exam: Present: atraumatic, normocephalic, normal inspection Respiratory exam: Present: normal lung sounds bilaterally. Absent: respiratory distress, wheezes, rales, rhonchi, stridor Cardiovascular Exam: Present: regular rate, normal rhythm Neurological exam: Present: alert, oriented X3, CN II-XII intact Psychiatric exam: Present: normal affect, normal mood Skin exam: Present: warm, dry, intact, normal color. Absent: rash Course Vital Signs 05/26/24 13:20 Temperature 97.6 F Pulse Rate 107 H Respiratory 18 Rate O2 Sat by Pulse 100 Oximetry Medical Decision Making - Medical Decision Making This is a 34 year old female who presents to the emergency department for abdominal pain. Was pt. sent in by a medical professional or institution? @ -No Did you speak to anyone other than the patient for history? @ -No Did you review nursing and triage notes? @ -Yes, and I agree, it is accurate with regards to the patient's symptoms. Were old charts reviewed? @ -No Differential Diagnosis? @ -Differential Abdominal Pain Women: Appendicitis, Cholecystitis, diverticulosis, ischemic bowel, pancreatitis, hepatitis, UTI, gastroenteritis, AAA, incarcerated hernia, bowel obstruction, constipation, inflammatory bowel, hepatitis, peptic ulcer disease, splenic infarction, perforated viscus, vulvitis, ovarian torsion, PID, kidney stone, placenta abruption, this is not meant to be an all-inclusive list EKG interpreted by me (3pts min.)? @ -Not obtained X-rays interpreted by me (1pt min.)? @ -Not obtained CT interpreted by me (1pt min.)? @ -Not obtained U/S interpreted by me (1pt. min.)? @ -Obstetrics ultrasound obtained. My interpretation identifies no evidence of an IUP. What testing was considered but not performed? (CT, X-rays, U/S, labs)? Why? @ -None What meds were considered but not given? Why? @ -Tylenol, however patient declined Did you discuss the management of the patient with other professionals? @ -Yes, Dr. Avery, GEOTECHNICIAL PROPERTIES TECHNICIAN, who advised that this is a failed and the safest option would be IM methotrexate. Did you reconcile home meds? @ -No Was smoking cessation discussed for >3mins.? @ -No Was critical care preformed (if so, how long)? @ -No Were there social determinants of health that impacted care today? How? (Homelessness, low income, unemployed, alcoholism, drug addiction, transportation, low edu. Level, literacy, decrease access to med. care, [facility], rehab)? @ -No Was there de-escalation of care discussed even if they declined? (Discuss DNR or withdrawal of care, Hospice)? @ -No What co-morbidities impacted this encounter? (DM, HTN, Smoking, COPD, CAD, Cancer, CVA, Hep., AIDS, mental health diagnosis, sleep apnea, morbid obesity)? @ - Was patient admitted / discharged? @ -Discharged. Lab work demonstrates mild leukocytosis with a white blood cell count of 13.2. Beta-hCG is 9304. This has decreased when compared with yesterday when it was 12,256. She is Rh+ and no RhoGAM is indicated. Obstetrics ultrasound demonstrates no signs of an intrauterine . She has moderate cul-de-sac/left adnexal fluid and a 3.1 x 3.5 cm lesion on or near the left ovary that may represent an ectopic versus corpus luteum. Case discussed with Dr. Aveyr, GEOTECHNICIAL PROPERTIES TECHNICIAN. He advised that because there is no intrauterine and her hCG is decreasing, this will be a failed regardless. There is a high likelihood of ectopic and the safest option would likely be IM methotrexate if she is agreeable to this and can have reliable follow-up. Discussion took place with the patient who is agreeable to methotrexate. Advised she contact Dr. Mckinney's office first thing in the morning regarding these findings to schedule a follow-up appointment. Patient discharged home in stable condition. Case discussed with ED attending Dr. Villar. Return precautions reviewed in depth, the patient is instructed to return to the emergency department with any new, worsening, or concerning symptoms. Patient verbalized understanding. Undiagnosed new problem with uncertain prognosis? @ -None Drug Therapy requiring intensive monitoring for toxicity (Heparin, Nitro, Insulin, Cardizem)? @ -None Were any procedures done? @ -None Diagnosis/symptom? @ -Ectopic Acute, or Chronic, or Acute on Chronic? @ -Acute Uncomplicated (without systemic symptoms) or Complicated (systemic symptoms)? @ -Uncomplicated Side effects of treatment? @ -None Exacerbation, Progression, or Severe Exacerbation] @ -Not applicable Poses a threat to life or bodily function? @ -Unlikely - Lab Data Result diagrams: 05/26/24 13:51 05/26/24 13:51 Lab Results 05/26/24 05/26/24 05/26/24 Range/Units 13:43 13:51 13:51 WBC 13.2 H (3.8-10.6) k/uL RBC 4.09 (3.80-5.40) m/uL Hgb 12.0 (11.4-16.0) gm/dL Hct 37.1 (34.0-46.0) % MCV 90.7 (80.0-100.0) fL MCH 29.3 (25.0-35.0) pg MCHC 32.3 (31.0-37.0) g/dL RDW 13.4 (11.5-15.5) % Plt Count 294 (150-450) k/uL MPV 7.2 Neutrophils % 80 % Lymphocytes % 16 % Monocytes % 3 % Eosinophils % 1 % Basophils % 0 % Neutrophils # 10.5 H (1.3-7.7) k/uL Lymphocytes # 2.1 (1.0-4.8) k/uL Monocytes # 0.3 (0-1.0) k/uL Eosinophils # 0.1 (0-0.7) k/uL Basophils # 0.0 (0-0.2) k/uL Sodium 133 L (137-145) mmol/L Potassium 4.2 (3.5-5.1) mmol/L Chloride 102 (98-107) mmol/L Carbon Dioxide 23 (22-30) mmol/L Anion Gap 8 mmol/L BUN 12 (7-17) mg/dL Creatinine 0.69 (0.52-1.04) mg/dL Est GFR (CKD-EPI)AfAm >90 (>60 ml/min/1.73 sqM) Est GFR (CKD-EPI)NonAf >90 (>60 ml/min/1.73 sqM) Glucose 104 H (74-99) mg/dL Calcium 8.9 (8.4-10.2) mg/dL Total Bilirubin 0.5 (0.2-1.3) mg/dL AST 26 (14-36) U/L ALT 21 (4-34) U/L Alkaline Phosphatase 65 (38-126) U/L Total Protein 6.7 (6.3-8.2) g/dL Albumin 4.0 (3.5-5.0) g/dL Lipase 61 (23-300) U/L HCG, Quant 9304.0 mIU/mL Urine Color Urine Appearance (Clear) Urine pH (5.0-8.0) Ur Specific [place] (1.001-1.035) Urine Protein (Negative) Urine Glucose (UA) (Negative) Urine Ketones (Negative) Urine Blood (Negative) Urine Nitrite (Negative) Urine Bilirubin (Negative) Urine Urobilinogen (<2.0) mg/dL Ur Leukocyte Esterase (Negative) Urine RBC (0-5) /hpf Urine WBC (0-5) /hpf Ur Squamous Epith Cells (0-4) /hpf Urine Bacteria (None) /hpf Urine Mucus (None) /hpf Blood Type A Positive Blood Type Recheck No Previous Record Bld Type Recheck Status [facility] ONLY 05/26/24 Range/Units 13:56 WBC (3.8-10.6) k/uL RBC (3.80-5.40) m/uL Hgb (11.4-16.0) gm/dL Hct (34.0-46.0) % MCV (80.0-100.0) fL MCH (25.0-35.0) pg MCHC (31.0-37.0) g/dL RDW (11.5-15.5) % Plt Count (150-450) k/uL MPV Neutrophils % % Lymphocytes % % Monocytes % % Eosinophils % % Basophils % % Neutrophils # (1.3-7.7) k/uL Lymphocytes # (1.0-4.8) k/uL Monocytes # (0-1.0) k/uL Eosinophils # (0-0.7) k/uL Basophils # (0-0.2) k/uL Sodium (137-145) mmol/L Potassium (3.5-5.1) mmol/L Chloride (98-107) mmol/L Carbon Dioxide (22-30) mmol/L Anion Gap mmol/L BUN (7-17) mg/dL Creatinine (0.52-1.04) mg/dL Est GFR (CKD-EPI)AfAm (>60 ml/min/1.73 sqM) Est GFR (CKD-EPI)NonAf (>60 ml/min/1.73 sqM) Glucose (74-99) mg/dL Calcium (8.4-10.2) mg/dL Total Bilirubin (0.2-1.3) mg/dL AST (14-36) U/L ALT (4-34) U/L Alkaline Phosphatase (38-126) U/L Total Protein (6.3-8.2) g/dL Albumin (3.5-5.0) g/dL Lipase (23-300) U/L HCG, Quant mIU/mL Urine Color Yellow Urine Appearance Cloudy H (Clear) Urine pH 6.0 (5.0-8.0) Ur Specific [place] 1.019 (1.001-1.035) Urine Protein Negative (Negative) Urine Glucose (UA) Negative (Negative) Urine Ketones Negative (Negative) Urine Blood Large H (Negative) Urine Nitrite Negative (Negative) Urine Bilirubin Negative (Negative) Urine Urobilinogen <2.0 (<2.0) mg/dL Ur Leukocyte Esterase Negative (Negative) Urine RBC >182 H (0-5) /hpf Urine WBC 3 (0-5) /hpf Ur Squamous Epith Cells 4 (0-4) /hpf Urine Bacteria Moderate H (None) /hpf Urine Mucus Occasional H (None) /hpf Blood Type Blood Type Recheck Bld Type Recheck Status - Radiology Data Radiology results: report reviewed, image reviewed Disposition Clinical Impression: Ectopic of left ovary Disposition: HOME SELF-CARE Instructions (If sedation given, give patient instructions): Ectopic (DC) Additional Instructions: Return to the emergency department with any new, worsening, or concerning symptoms. Contact your GEOTECHNICIAL PROPERTIES TECHNICIAN either this evening or first thing tomorrow morning. Let them know that you were seen in the emergency department for abdominal pain in and your hCG went from 12,000 down to 9000 and your ultrasound was concerning for an ectopic and you were given a shot of methotrexate at the recommendation of our GEOTECHNICIAL PROPERTIES TECHNICIAN. Is patient prescribed a controlled substance at d/c from ED?: No Referrals: Riley Portillo MD [Primary Care Provider] - 1-2 days Time of Disposition: 16:50
[2024-05-26 13:57] LABS: Basophils % (A) 0 %; Eosinophils # (A) 0.1 k/uL (0-0.7); Eosinophils % (A) 1 %; HCT 37.1 % (34.0-46.0); Lymphocytes # (A) 2.1 k/uL (1.0-4.8); Lymphocytes % (A) 16 %; MCH 29.3 pg (25.0-35.0); MCHC 32.3 g/dL (31.0-37.0); MCV 90.7 fL (80.0-100.0); Mean Platelet Volume 7.2; Monocytes # (A) 0.3 k/uL (0-1.0); Monocytes % (A) 3 %; Neutrophils # (A) 10.5 k/uL (1.3-7.7); Neutrophils % (A) 80 %; Platelet Count 294 k/uL (150-450); RBC 4.09 m/uL (3.80-5.40); RDW 13.4 % (11.5-15.5); WBC 13.2 k/uL (3.8-10.6)
[2024-05-26 14:07] LABS: ALT 21 U/L (4-34); AST 26 U/L (14-36); African American GFR (CKD) >90 (>60 ml/min/1.73 sqM); Alkaline Phosphatase 65 U/L (38-126); Anion Gap 8 mmol/L; Blood Urea Nitrogen 12 mg/dL (7-17); Calcium 8.9 mg/dL (8.4-10.2); Carbon Dioxide 23 mmol/L (22-30); Chloride 102 mmol/L (98-107); Glucose 104 mg/dL (74-99); Lipase 61 U/L (23-300); Non-African American GFR(CKD) >90 (>60 ml/min/1.73 sqM); Potassium 4.2 mmol/L (3.5-5.1); Sodium 133 mmol/L (137-145); Total Bilirubin 0.5 mg/dL (0.2-1.3); Total Protein 6.7 g/dL (6.3-8.2)
[2024-05-26 15:28] LABS: Appearance,Urine Cloudy (Clear); Bacteria,Urine Moderate /hpf; Bilirubin,Urine Negative (Negative); Blood,Urine Large (Negative); Color,Urine Yellow; Glucose,Urine (UA) Negative (Negative); Ketones,Urine Negative (Negative); Leukocyte Esterase,Urine Negative (Negative); Mucus,Urine Occasional /hpf; Nitrite,Urine Negative (Negative); Protein,Urine Negative (Negative); RBC,Urine >182 /hpf (0-5); Specific Gravity,Urine 1.019 (1.001-1.035); Squamous Epithelial Cell,Urine 4 /hpf (0-4); Urobilinogen,Urine <2.0 mg/dL (<2.0); WBC,Urine 3 /hpf (0-5)
--- NOTE | 2024-05-26 15:31 | US ---
EXAMINATION TYPE: Ultrasound OB <= 14 weeks transvaginal DATE OF EXAM: 05/26/2024 1:33 PM COMPARISON: NONE CLINICAL INDICATION: Female, 34 years old with history of Pelvic pain and bleeding in ; , multiple pregnancies and miscarriages per patient, spotting and LLQ pain. Beta-hCG 9,300 today in 1 2,000 yesterday. TECHNIQUE: TA/TV grayscale and color Doppler imaging including first trimester . FINDINGS: EXAM MEASUREMENTS: GESTATIONAL AGE / DATING Physician Established: Not yet established Dates by LMP: (2 weeks/4 days) EDC: 02/12/2025 Dates by First Scan: No previous this is first scan Dates by Current Scan for: No IUP seen at this time MATERNAL ANATOMY Uterus: 9.9 x 4.6 x 4.3cm Right Ovary: 2.4 x 2.8 x 1.6cm Left Ovary: 4.5 x 4.0 x 3.8cm - transabdominally there is a 3.1 x 3.5 x 2.2cm lesion on or near ovary that may represent an ectopic Post CDS / Adnexa: Moderate free fluid within CDS and Lt adnexa containing internal echoes Presence of free fluid: see above Presence of corpus luteal cyst: not seen Presence of subchorionic bleed: not seen GESTATION / SURVEY CRL: not seen Gestational Sac MSD: not within uterus Date of LMP: 05/08/2024 Beta HcG (if available): 9300, was 12,000 yesterday IMPRESSION: Given the high beta hCG value (9,300), the lack of an intrauterine , and moderate cul-de-sac /left adnexal free fluid, an underlying ectopic or missed are in the differential. Possible 3.1 cm ectopic versus corpus luteum in the left adnexa. [facility], Workstation: [id number], 05/26/2024 3:29 PM
[2024-05-26] MEDS: METHOTREXATE SODIUM 25 MG/ML IM ONE (16:42)
[2024-05-26] MEDS: ONDANSETRON 4 MG ODT STARTER PACK 2 TAB BTL PO STA (16:48)
[2024-05-26] MEDS: ACET/COD 300 MG/30 MG STARTER PACK 6 TAB BTL PO STA (16:49)
[2024-05-26 17:43] VITALS: BP 146/80; PULSE 90; RESP 20; TEMP 98
== END 2024-05-26 17:23 | disposition home or self-care (01) ==
LOC: EC 13:17
DX: O00.202 Left ovarian pregnancy without intrauterine pregnancy (principal); Z91.048 Other nonmedicinal substance allergy status; Z3A.00 Weeks of gestation of pregnancy not specified
CPT/HCPCS: 99284; 96360; 96372; 36415; 86900; 86901; 80053; 83690; 85025; 81001; 84702; 76801; 76817; J9260; S0119

== ENCOUNTER → 2024-08-09 | Outpatient (CLI) | payer MEDICAID ==
--- NOTE | 2024-08-09 14:09 | MM ---
Reason for Exam: Screening (asymptomatic). Patient History: Menarche at age 13. First Full-Term at age 28. Premenopausal. Patient tested for BRCA2 outcome was positive. Paternal grandmother had ovarian cancer, age 63. Tissue Density: The breasts are heterogeneously dense, which may obscure small masses. Findings: Analyzed By CAD. Punctate calcifications far posterior superior left MLO view partially projecting over the pectoralis muscle. Recommend 3-D images and magnification views to further characterize and also to help determine if these represent benign dural calcifications. Otherwise, no significant mass or other discrete abnormality is seen. Overall Assessment: Incomplete: need additional imaging evaluation, BI-RAD 0 Management: Special View Mammogram of the left breast. spot 3-D MLO (include far posterior tissues and use to determine if the calcifications are dermal), mag MLO, and 3-D lateral views . [facility] will attempt to contact patient to return for supplemental views. Note that the patient may qualify for supplementary screening with breast MRI given positive BRCA2 status. [facility], , 08/09/2024 2:05 PM. Electronically signed and approved by: Chase Marquez M.D. Radiologist
== END | disposition home or self-care (01) ==
LOC: RADMAMWWP 13:14
PROVIDERS: ATTEND Obstetrics & Gynecology
DX: Z12.31 Encounter for screening mammogram for malignant neoplasm of breast (principal); R92.333 Mammographic heterogeneous density, bilateral breasts; Z15.01 Genetic susceptibility to malignant neoplasm of breast
CPT/HCPCS: 77067

== ENCOUNTER → 2024-08-13 | Outpatient (CLI) | payer MEDICAID ==
--- NOTE | 2024-08-13 15:57 | MM ---
Reason for Exam: Additional evaluation requested from abnormal screening. Last screening mammogram was performed less than 1 month ago. Patient History: Menarche at age 13. First Full-Term at age 28. Premenopausal. Patient tested for BRCA2 outcome was positive. Paternal grandmother had ovarian cancer, age 63. Prior Study Comparison: 08/09/2024 Bilateral MG screening mammo w CAD, [facility]. Tissue Density: Left: The breasts are heterogeneously dense, which may obscure small masses. Findings: Analyzed By CAD. Multiple views are utilized given the far posterior/difficult location of the calcifications. However, on the 3-D MLO view, the calcifications are confirmed to be grouped, punctate, and located medially at the skin surface. These are benign dermal calcifications. No suspicious microcalcification seen. Overall Assessment: Benign, BI-RAD 2 Management: Screening Mammogram of both breasts in 1 year. GIVEN BRCA2 GENE MUTATION, THE PATIENT MAY QUALIFY FOR ALTERNATING SCREENING WITH MAMMOGRAM AND BREAST MRI AT 6 MONTH INTERVALS. Results were given to the patient verbally at the time of exam. Patient should continue monthly self-breast exams. A clinical breast exam by your physician is recommended on an annual basis. This exam should not preclude additional follow-up of suspicious palpable abnormalities. [facility], , 08/13/2024 3:52 PM. Electronically signed and approved by: Chase Marquez M.D. Radiologist
== END | disposition home or self-care (01) ==
LOC: RADMAMWWP 15:05
PROVIDERS: ATTEND Obstetrics & Gynecology
DX: R92.8 Other abnormal and inconclusive findings on diagnostic imaging of breast (principal); R92.332 Mammographic heterogeneous density, left breast; R92.1 Mammographic calcification found on diagnostic imaging of breast
CPT/HCPCS: 77061; 77065